=== PATIENT | male | born 1980 | race Caucasian/White ===

== ENCOUNTER → 2021-05-01 | Outpatient (CLI) | payer OTHER ==
--- NOTE | 2021-05-01 10:44 | Diagnostic Imaging Report ---
INDICATION: Left knee pain. FINDINGS: Three views of the left knee show no fracture, dislocation, or other abnormality. IMPRESSION: Normal left knee. Dictated by: Dictated on workstation # [id number]
== END ==
LOC: RAD FS 09:43
PROVIDERS: ATTEND Nurse Practitioner
DX: M25.562 Pain in left knee (principal)
CPT/HCPCS: 73562